=== PATIENT | male | born 1955 | race Caucasian/White ===

== ENCOUNTER → 2016-10-18 | Outpatient (CLI) | payer OTHER | LOC: FIMAGING 14:56 | PROVIDERS: ATTEND Family Medicine | DX: S83.232A Complex tear of medial meniscus, current injury, left knee, initial encounter (principal); M25.462 Effusion, left knee ==

== ENCOUNTER 2018-03-13 12:46 | Day surgery (SDC) | payer OTHER ==
[2018-03-13] MEDS ORDERED: ceFAZolin 2 GM/DEXTROSE 100 ML IV ONE (15:36)
[2018-03-13] MEDS ORDERED: LR 1,000 ML IV ONE (15:49)
--- NOTE | 2018-03-13 16:25 | PDHPUP ---
History & Physical Update H&P update statement: This history and physical update is based on an assessment of the patient which was completed after admission or registration (within 24 hours), but prior to the surgery/procedure. H&P update: H&P reviewed & patient examined, no change in patient's condition since H&P completed
[2018-03-13] MEDS ORDERED: MIDAZOLAM 2 MG/2 ML VIAL IVP ONE (18:07)
--- NOTE | 2018-03-13 18:07 | PDANEPAE ---
ANE History of Present Illness Left leg wide excision skin lesion. Left groin sentinel node ANE Past Medical History - Cardiovascular History Hx Hypertension: No Hx Arrhythmias: No Hx Chest Pain: No Hx Coronary Artery / Peripheral Vascular Disease: No Hx CHF / Valvular Disease: No Hx Palpitations: No - Pulmonary History Hx COPD: No Hx Asthma/Reactive Airway Disease: No Hx Recent Upper Respiratory Infection: No Hx Oxygen in Use at Home: No Hx Sleep Apnea: No Sleep Apnea Screening Result - Last Documented: Negative - Neurologic History Hx Cerebrovascular Accident: No Hx Seizures: No Hx Dementia: No - Endocrine History Hx Diabetes: No Hypothyroid: No Hyperthyroid: No Obesity: no - Renal History Hx Renal Disorders: No - Liver History Hx Hepatic Disorders: No - Neurological & Psychiatric Hx Hx Neurological and Psychiatric Disorders: No - Cancer History Hx Cancer: Yes 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 - Congenital Disorder History Hx Congenital Disorders: No - GI History GERD: no Hx Gastrointestinal Disorders: No - Other Health History Other Health History: THORACIC OUTLET SYNDROME - Chronic Pain History Chronic Pain: No - Surgical History Prior Surgeries: L KNEE SCOPE OCTOBER 2016 ANE Review of Systems Review of Systems: - Exercise capacity METS (RN): 6 METS ANE Patient History - Allergies Allergies/Adverse Reactions: No Known Allergies Allergy (Unverified 10/25/13 12:54) - Home Medications Home medications: home medication list seen and reviewed Home Medications: Cholecalciferol Vit D3 [Vitamin D3 2000 units tab (OTC)] 2,000 units PO DAILY [Last Taken 03/09/18] - NPO status NPO Status: no food or drink >8 hours NPO Since - Liquids (Date): 03/13/18 NPO Since - Liquids (Time): 11:00 NPO Since - Solids (Date): 03/13/18 NPO Since - Solids (Time): 06:00 - Smoking Hx Smoking Status: Never smoked Marijuana use: No - Alcohol Use Alcohol Use: Other - Family Anes Hx Family Anes Hx: none Family Hx Anesthesia Complications: NONE ANE Labs/Vital Signs - Vital Signs Blood Pressure: 98/72 Heart Rate: 60 Respiratory Rate: 16 O2 Sat (%): 92 Height: 182.88 cm Weight: 79.379 kg ANE Physical Exam - Airway Neck exam: FROM Mallampati Score: Class 1 Mouth exam: normal dental/mouth exam - Pulmonary Pulmonary: no respiratory distress, no rales or rhonchi - Cardiovascular Cardiovascular: regular rate and rhythym, no murmur, rub, or gallop - ASA Status ASA Status: I ANE Anesthesia Plan Anesthesia Plan: GA w LMA
[2018-03-13] MEDS ORDERED: BUPIVACAINE 0.5% 30 ML SDV ONE (18:18)
[2018-03-13] MEDS ORDERED: PROPOFOL 200 MG/20 ML VIAL ONE ×3 (18:24)
[2018-03-13] MEDS ORDERED: fentaNYL 250 MCG/5 ML INJ ONE (18:24)
[2018-03-13] MEDS ORDERED: DEXAMETHASONE 4 MG/ML VIAL ONE (18:57)
[2018-03-13] MEDS ORDERED: ONDANSETRON 4 MG/2 ML VIAL ONE (18:57)
[2018-03-13] MEDS ORDERED: KETOROLAC 30 MG/1 ML SDV ONE (18:57)
[2018-03-13] MEDS ORDERED: ONDANSETRON 4 MG/2 ML VIAL IVP PRN (19:35)
[2018-03-13] MEDS ORDERED: PROMETHAZINE HCL 25 MG/ML INJ IVP PRN (19:35)
[2018-03-13] MEDS ORDERED: oxyCODONE IR 5 MG TAB PO PRN (19:35)
[2018-03-13] MEDS ORDERED: ACETAMINOPHEN 500 MG TAB PO PRN (19:35)
[2018-03-13] MEDS ORDERED: HYDROCODONE/APAP 5/325 TAB PO PRN (19:35)
[2018-03-13] MEDS ORDERED: fentaNYL 100 MCG/2 ML INJ IVP PRN (19:35)
[2018-03-13] MEDS ORDERED: NALOXONE HCL 0.4 MG/ML INJ IVP PRN (19:35)
[2018-03-13] MEDS ORDERED: HYDROmorphONE/DILAUDID 2 MG/ML INJ IVP PRN (19:35)
--- NOTE | 2018-03-13 19:37 | POSTOPPROG ---
Post Op Note Date of Operation: 03/13/18 Surgeon: Nithya Farah [employer] Manager: antony Anesthesiologist: krysten Anesthesia: GET(General Endotracheal) Pre-op Diagnosis: melanoma L thigh Post-op Diagnosis: same Indication: 63yo M with L thigh melanoma breslow depth 1.3 Procedure: WLE L thigh with L inguinal SLN bx Findings: none unusual Inf/Abcess present in the surg proc area at time of surgery?: No EBL: Minimal Specimen(s): L thigh WLE melanoma L SLN
[2018-03-13] MEDS ORDERED: HYDROCOD/APAP 5/325 PREPACK#6 BTL TAKEHOME ONE (20:36)
[2018-03-13 21:40] VITALS: BP 107/79
--- NOTE | 2018-03-15 05:23 | GOP ---
DATE OF OPERATION: 03/13/2018 SURGEON: Nithya Farah MD CONSULTANT [employer]ICS: Jennifer Vasquez, AMY. ANESTHESIA: General. ANESTHESIOLOGIST: Zhane Alvarez MD. PREOPERATIVE DIAGNOSIS: Malignant melanoma, left leg. POSTOPERATIVE DIAGNOSIS: Malignant melanoma, left leg. PROCEDURE PERFORMED: Wide local excision of malignant melanoma, left leg and sentinel lymph node, le ft groin. FINDINGS: SPECIMENS: Skin, subcutaneous tissue, adipose left leg, and sentinel lymph node left groin. ESTIMATED BLOOD LOSS: 10 cc. INDICATIONS: Deondre Herrera is a 63-year-old who had a biopsy performed on his left leg melanoma was found, Breslow depth 1.3 mm. DESCRIPTION OF PROCEDURE: Patient was brought into the operating room, placed supine on the table, a nd general anesthesia was administered. I had marked the area of the melanoma preoperatively, perfor med an ellipse on his left leg down to the level of the fascia. It was marked short superior, long l ateral. Hemostasis achieved. The wound was closed with 2-0 nylon. Next, I used the gamma probe to identify the sentinel lymph node in the left groin. There is very we ak uptake. I made an incision in the groin and dissected down along the subcutaneous tissues, and I encountered some lymph tissue with weak uptake. The gamma probe had strong uptake whenever I pointed it near the bladder. I opened up his fascia to see if there were any deeper nodes that were hotter and identified the femoral artery and looked for lymphatic tissue in this area, and it was very quiet . I reapproximated the fascia. I closed the subcutaneous tissue with 3-0 Vicryl followed by 4-0 Mon ocryl. Dermabond applied. Silver dressing applied to the leg. He was awakened in the operating mario m, extubated, transferred to PACU in stable condition. /[id number]/MODL
== END 2018-03-13 21:30 | disposition home or self-care (01) ==
LOC: F3N 12:46 → FSGY 12:46 → UNDOADMOB 12:46 → EDSTATUS 15:15 → UNDODISOB 21:30 → FSGY 21:30
PROVIDERS: ATTEND Surgery
PROC: 0HBJXZZ Excision of Left Upper Leg Skin, External Approach (ICD-10-PCS; 2018-03-13)
PROC: 07BJ0ZX Excision of Left Inguinal Lymphatic, Open Approach, Diagnostic (ICD-10-PCS; principal; 2018-03-13 16:00)
DX: C43.72 Malignant melanoma of left lower limb, including hip (principal); L57.0 Actinic keratosis; Z85.828 Personal history of other malignant neoplasm of skin
CPT/HCPCS: 11606; 38500; 78195; A9520; J0690; J1100; J1885; J2250; J2405; J2704; J3010